=== PATIENT | male | born 1965 | race Caucasian/White ===

== ENCOUNTER 2018-03-10 11:33 | Emergency (ER) | payer SELFPAY ==
[~2018-03-10] VITALS: Ht 170.2 cm; Wt 100.0 kg
[2018-03-10] MEDS ORDERED: LOSA25TA12 MT (12:11)
[2018-03-10] MEDS ORDERED: nifedipine (12:11)
[2018-03-10] MEDS ORDERED: NAPR-677 PO (12:15)
[2018-03-10] MEDS ORDERED: CELE100C MT (12:15)
[2018-03-10 15:30] VITALS: BP 127/81
[2018-03-10] MEDS ORDERED: IBUPROFEN 800MG TABLET PO ONE (15:30)
== END 2018-03-10 16:12 | disposition home or self-care (01) ==
LOC: ER 13:23
DX: M79.89 Other specified soft tissue disorders (principal); M25.562 Pain in left knee; M10.9 Gout, unspecified; I10 Essential (primary) hypertension; F17.200 Nicotine dependence, unspecified, uncomplicated; Z90.49 Acquired absence of other specified parts of digestive tract
CPT/HCPCS: 73560; 93971; 99284